=== PATIENT | male | born 1995 | race Caucasian/White ===

== ENCOUNTER 2020-04-09 10:50 | Emergency (ER) | payer SELFPAY ==
--- NOTE | ~2020-04-09 | CT_ITS ---
EXAMINATION: CT abdomen pelvis w con DATE: 04/09/2020 12:08 INDICATION: Right lower quadrant pain. Evaluate for appendicitis. TECHNIQUE: Computed tomography (CT) of the abdomen and pelvis was performed with 100 cc Omnipaque 350 intravenous contrast. The dose-length product was 571.99 mGy-cm. Automated exposure control and iter ative reconstruction technique were employed. COMPARISON: None. FINDINGS: Lung bases are unremarkable. Heart size normal. No significant pleural or pericardial effus ion. Retroaortic left renal vein. No significant vascular abnormality. No lymphadenopathy. The liver, spleen, pancreas, adrenal glands and kidneys are unremarkable. Gallbladder is present. Non obstructive bowel gas pattern. Normal appendix. No abnormal pelvic masses or fluid collections. There is an accessory splenule. There is mild inguinal lymphadenopathy, likely reactive. IMPRESSION: 1. No acute abdominal abnormality. No evidence for appendicitis. Reviewed, dictated and finalized at location A.
[2020-04-09 10:54] VITALS: BP 150/85; PULSE 94; RESP 18; TEMP 36.9; O2SAT 100
[2020-04-09 11:21] LABS: Basophils Percent Auto 0.3 % (0.2-1.2); Eosinophils Absolute Auto 0.1 K/mm3 (0-0.3); Eosinophils Percent Auto 1.4 % (0-4.4); Hematocrit 44.7 % (42.0-52.0); Immature Granulocyte Absolute 0.03 K/mm3 (0.00-0.031); Immature Granulocyte Percent A 0.4 % (0-0.5); Lymphocytes Absolute Auto 1.62 K/mm3 (0.9-3.2); Lymphocytes Percent Auto 22.4 % (18.3-44.2); Mean Corpuscular HGB Conc 33.6 g/dl (32-36); Mean Corpuscular Hemoglobin 27.9 pg (26-34); Mean Corpuscular Volume 83.2 fl (80-100); Mean Platelet Volume 10.7 fl (7.4-10.4); Monocytes Absolute Auto 0.5 K/mm3 (0.1-0.6); Monocytes Percent Auto 7.3 % (2.6-8.5); Neutrophils Absolute Auto 4.9 K/mm3 (1.3-6.7); Neutrophils Percent Auto 68.2 % (45.5-73.1); Platelet Count Result 202 k/mm3 (150-375); Red Blood Count 5.37 M/mm3 (4.6-6.20); Red Cell Distribution Width 12.2 % (11.5-14.5); White Blood Count 7.2 K/mm3 (4.5-10.0)
--- NOTE | 2020-04-09 11:24 | ED.ABDPAIN ---
HPI - Abdominal Pain General Chief Complaint: Abdominal Pain Stated Complaint: abd pain Time Seen by Provider: 04/09/20 11:02 Source: patient Mode of arrival: ambulatory Limitations: no limitations History of Present Illness HPI narrative: Patient is a 24-year-old male who presents for evaluation of right lower quadrant abdominal pain. Pain has been intermittent in nature over the past 3 days. When the pain occurs it is very sharp. Patient denies fever, nausea or vomiting. Pain is only located in the right lower quadrant without radiation to the back. No testicular pain, testicular swelling, penile pain or discharge. No hematuria or dysuria. No abdominal distention. Pain is currently resolved at the time of assessment except for when the patient presses on his abdomen. Related Data Home Medications Medication Instructions Recorded Confirmed No Home Medications 04/09/20 04/09/20 Allergies Allergy/AdvReac Type Severity Reaction Status Date / Time No Known Allergies Allergy Verified 04/09/20 10:58 Review of Systems Review of Systems: Narrative: CONSTITUTIONAL: Denies fever CARDIOVASCULAR: Denies chest pain RESPIRATORY: Denies cough or dyspnea. GASTROINTESTINAL: Reports right lower quadrant abdominal pain SKIN: Denies rash MUSCULOSKELETAL: Denies back pain NEUROLOGIC: Denies headache [facility] Past Medical History Medical History (Updated 04/09/20 @ 12:50 by Rosalinda Pandya MD) No pertinent past medical history Surgical History Surgical History (Updated 04/09/20 @ 11:36 by Rosalinda Pandya MD) No pertinent past surgical history Social History Social History (Updated 04/09/20 @ 11:36 by Rosalinda Pandya MD) Smoking status: Never smoker Alcohol intake: current Substance use: never Living arrangements: with family Gender identity (if verbalized by the patient): Male Exam Narrative: Exam Narrative: GENERAL: Awake, alert, conversant HEAD: Normocephalic, atraumatic. EYES: PERRLA and EOMI. ENT: Nares clear, no rhinorrhea or epistaxis. Mucous membranes moist. NECK: Supple. CHEST: No respiratory distress, breathing even and non labored HEART: Regular rate, sinus rhythm ABDOMEN:Non distended, right lower quadrant tenderness, no guarding present, no rebound, no rigidity, negative Rovsing sign, negative Dowling sign, no right upper quadrant tenderness or epigastric tenderness EXTREMITIES: Normal range of motion. No edema. SKIN: Warm, dry, no rash. NEURO:No focal deficits. Alert and oriented x3 Course Vital Signs Vital signs: Vital Signs Temperature 36.9 C 04/09/20 10:54 Pulse Rate 94 04/09/20 10:54 Respiratory Rate 18 04/09/20 10:54 Blood Pressure 150/85 H 04/09/20 10:54 Pulse Oximetry 100 04/09/20 10:54 Temperature 36.9 C 04/09/20 10:54 Pulse Rate 94 04/09/20 10:54 Respiratory Rate 18 04/09/20 10:54 Blood Pressure 150/85 H 04/09/20 10:54 Pulse Oximetry 100 04/09/20 10:54 MDM - Abdominal Pain MDM Narrative Medical decision making narrative: Patient vital signs are stable. Laboratory results are reassuring. No leukocytosis. No findings of appendicitis on CT. Patient's abdomen is soft without significant pain or signs of surgical abdomen on serial exams. Lab and imaging evaluations are reviewed and patient is felt to be a reasonable candidate for outpatient management. Patient was instructed as to limitations of imaging and lab evaluation and encouraged to return to the emergency department her primary physician for repeat exam in 12 hours if continued or worsening pain. Differential Diagnosis Differential diagnosis: Likely abdominal pain, acute appendicitis, constipation and gastroenteritis Lab Data Attestation: I reviewed the patient's lab results. Result diagrams: 04/09/20 11:11 04/09/20 11:11 Labs: Lab Results 04/09/20 04/09/20 04/09/20 Range/Units 11:11 11:11 11:48 WBC 7.2 (4.5-10.0) K/mm3 RBC 5.37
[2020-04-09 11:33] LABS: Alanine Aminotransferase 31 U/L (4-50); Albumin Level 4.5 g/dL (3.5-5.1); Alkaline Phosphatase 75 U/L (38-126); Aspartate Amino Transferase 27 U/L (17-59); Bilirubin,Total 0.3 mg/dL (0.2-1.3); Blood Urea Nitrogen 11 mg/dL (9-20); Calcium 9.1 mg/dL (8.4-10.2); Carbon Dioxide 29 mmol/L (22-30); Chloride 104 mmol/L (98-107); Estimated CRCL calculation 111 ml/min; Estimated Glomerular Filt Rate > 60; Glucose 103 mg/dL (75-110); Lipase 51 U/L (23-300); Potassium 4.2 mmol/L (3.4-5.0); Sodium 138 mmol/L (137-145)
[2020-04-09 12:01] LABS: Add Urine Microscopic? NO; Appearance Urine Clear (Clear); Bilirubin Urine Negative (Negative); Blood Urine Negative (Negative); Color Urine Colorless (Yellow); Glucose Urine UA Negative (Negative); Ketones Urine Negative (Negative); Leukocyte Esterase Ur Negative LEU/UL (Negative); Mucus Urine Rare /lpf; Nitrate Urine Negative (Negative); Protein Urine Negative (Negative); RBC Urine 0-2 /hpf (0-2); Urobilinogen Urine Negative mg/dL (<2.0); WBC Urine 0-3 /hpf
[2020-04-09 13:13] VITALS: BP 145/83; PULSE 93; RESP 18; O2SAT 100
== END 2020-04-09 13:14 | disposition home or self-care (01) ==
PROVIDERS: Emergency Provider Emergency Medicine
DX: R10.31 Right lower quadrant pain (principal)
CPT/HCPCS: 36415; 74177; 80053; 81003; 83690; 85025; 99284; Q9967

== ENCOUNTER 2020-08-15 19:58 | Emergency (ER) | payer SELFPAY ==
[2020-08-15 20:03] VITALS: BP 170/75; PULSE 79; RESP 20; TEMP 35.9; O2SAT 100
--- NOTE | 2020-08-15 20:23 | ED.DENTAL ---
HPI - Dental/Oral General Chief complaint: Dental/Oral <Darron Lopez PA-C - Last Filed: 08/15/20 20:29> Stated complaint: Tooth pain <Darron Lopez PA-C - Last Filed: 08/15/20 20:29> Time Seen by Provider: 08/15/20 20:05 <Darron Lopez PA-C - Last Filed: 08/15/20 20:29> Source: patient <Darron Lopez PA-C - Last Filed: 08/15/20 20:29> Mode of arrival: ambulatory <Darron Lopez PA-C - Last Filed: 08/15/20 20:29> Limitations: no limitations <Darron Lopez PA-C - Last Filed: 08/15/20 20:29> History of Present Illness HPI Narrative: Patient is a 24-year-old male who presents with a few days duration of right lower jaw pain and now is having swelling history of dental decay patient notes moderate aching pain worse with eating denies other complaints has been taken ibuprofen with minimal relief <Darron Lopez PA-C - Last Filed: 08/15/20 20:29> Related Data Allergies/adverse reactions: Allergies Allergy/AdvReac Type Severity Reaction Status Date / Time No Known Allergies Allergy Verified 08/15/20 20:06 <Darron Lopez PA-C - Last Filed: 08/15/20 20:29> Review of Systems Review of Systems: All systems reviewed & are unremarkable except as noted in HPI and below <Darron Lopez PA-C - Last Filed: 08/15/20 20:29> [facility] Past Medical History Medical History: Medical History No pertinent past medical history <Darron Lopez PA-C - Last Filed: 08/15/20 20:29> Surgical History Surgical History: Surgical History No pertinent past surgical history <Darron Lopez PA-C - Last Filed: 08/15/20 20:29> Social History Social History: Social History Smoking status: Never smoker Alcohol intake: current Substance use: never Gender identity (if verbalized by the patient): Male <NIGEL Mayo Last Filed: 08/15/20 20:29> Exam Narrative: Exam Narrative: GENERAL: Well-appearing, well-nourished, and in no acute distress. HEAD: Normocephalic, atraumatic. Right-sided jaw swelling no erythema EYES: PERRLA and EOMI. ENT: Nares clear, no rhinorrhea or epistaxis. Mucous membranes moist. Oropharynx without tonsillar hypertrophy exudate or other lesions. Swelling along the right gumline with tenderness of the posterior molar where he has decay. Floor of the mouth is soft uvula midline no trismus or drooling NECK: Supple. No adenopathy or masses. CHEST: Clear to auscultation. No respiratory distress. No wheezes rales or rhonchi HEART: Regular rate and rhythm. No murmur heard. SKIN: Warm, dry, no rash. NEURO: No focal deficits. Alert and oriented x3. Cranial nerves II through XII grossly intact PSYCH: Normal mood and affect. <NIGEL Mayo Last Filed: 08/15/20 20:29> Course Course Emergency Course: Patient in the room in no distress aware of case findings treatment plan and diagnosis agreeing to follow-up as directed <NIGEL Mayo Last Filed: 08/15/20 20:29> Vital Signs Vital signs: Vital Signs Temperature 96.7 F L 08/15/20 20:03 Pulse Rate 79 08/15/20 20:03 Respiratory Rate 20 08/15/20 20:03 Blood Pressure 170/75 H 08/15/20 20:03 Pulse Oximetry 100 08/15/20 20:03 Temperature 96.7 F L 08/15/20 20:03 Pulse Rate 79 08/15/20 20:03 Respiratory Rate 20 08/15/20 20:03 Blood Pressure 170/75 H 08/15/20 20:03 Pulse Oximetry 100 08/15/20 20:03 <NIGEL Mayo Last Filed: 08/15/20 20:29> Vital Signs Temperature 96.7 F L 08/15/20 20:03 Pulse Rate 79 08/15/20 20:03 Respiratory Rate 20 08/15/20 20:03 Blood Pressure 170/75 H 08/15/20 20:03 Pulse Oximetry 100 08/15/20 20:03 Temperature 96.7 F L 08/15/20 20:03 Pulse Rate 79 08/15/20 20:03 Resp
[2020-08-15] MEDS: HYDROcodone/acetaminophen (*CRX) 7.5-325 MG TABLET 1 TAB PO (20:25)
== END 2020-08-15 20:38 | disposition home or self-care (01) ==
PROVIDERS: Emergency Provider General Practice
DX: K04.7 Periapical abscess without sinus (principal)
CPT/HCPCS: 41800; 99283; A9270